=== PATIENT | female | born 1965 | race Caucasian/White ===

== ENCOUNTER 2023-06-06 13:53 | Emergency (ER) | payer OTHER ==
[~2023-06-06] VITALS: Ht 165.1 cm; Wt 68.0 kg
[2023-06-06 18:08] VITALS: TEMP 98
[2023-06-06 20:24] VITALS: BP 127/75; O2SAT 98
== END 2023-06-06 20:24 | disposition home or self-care (01) ==
LOC: ER 14:12
DX: S09.8XXA Other specified injuries of head, initial encounter (principal); Z88.5 Allergy status to narcotic agent; W22.8XXA Striking against or struck by other objects, initial encounter; Y93.89 Activity, other specified; Y92.89 Other specified places as the place of occurrence of the external cause; Y99.8 Other external cause status
CPT/HCPCS: 70450-TC